=== PATIENT | male | born 2000 | race Caucasian/White ===

== ENCOUNTER 2025-05-27 08:05 | Outpatient (CLI) | payer BC | END 2025-05-27 08:06 | disposition home or self-care (01) | LOC: ULT 08:05 | PROVIDERS: ATTEND Family Medicine | DX: R74.01 Elevation of levels of liver transaminase levels (principal); K76.0 Fatty (change of) liver, not elsewhere classified; R16.0 Hepatomegaly, not elsewhere classified | CPT/HCPCS: 76700 ==